=== PATIENT | male | born 1990 | race Caucasian/White ===

== ENCOUNTER 2017-09-02 10:31 | Emergency (ER) | payer SELFPAY ==
[2017-09-02 10:35] VITALS: O2SAT 95
[2017-09-02] MEDS ORDERED: IBUPROFEN 600 MG TAB PO ONE (10:45)
--- NOTE | 2017-09-02 10:47 | EDPHY ---
General Narrative: CHIEF COMPLAINT: Fall, left knee injury HISTORY OF PRESENT ILLNESS: Patient reports falling last night and striking his left knee on a brick planter. This was a mechanical fall as she tripped. He struck the knee while bent 90. Sudden onset of pain that was only mild last night. When he woke this morning it was more severe, he noted some bruising, and he was unable to bear weight on it. No head strike or injury elsewhere. No pain distal to the knee. No numbness or tingling. No footdrop. No other associated complaints or modifying factors. ESTABLISHED ORTHOPEDIST: None REVIEW OF SYSTEMS: Ten systems reviewed and are negative unless otherwise noted in the HPI PAST MEDICAL HISTORY: Muscle atrophy of the left lower extremity of uncertain etiology PAST SURGICAL HISTORY: None SOCIAL HISTORY: Occasional smoker. Occasional alcohol. Works at [employer] FAMILY HISTORY: Noncontributory EXAMINATION General Appearance: Alert, no distress Cardiovascular: Pulses normal throughout. Symmetric DP and PT pulses at 2+. Brisk cap refill Neurological: A&O, sensory symmetric, strength symmetric. No foot drop of the left lower extremity. Normal light sensation of the left foot. Normal proprioception of the left great toe Skin: Warm and dry, no rash. Mild ecchymosis suprapatellar and lateral on the left leg. No laceration or abrasion no erythema Extremities: Tenderness of the left knee anteriorly just to the left of the patella. Range of motion is intact and symmetric to the right. No instability of the knee. No crepitus. Negative Nancy. Negative drawer. Neurovascular intact distal to the area of pain Psychiatric: Mood and affect normal DIFFERENTIAL DIAGNOSES: Including but not limited to hematoma, sprain, strain, fracture, dislocation MDM: 10:45 a.m. Acute left knee injury after a fall late last night. He does have some bruising on the lateral aspect of the patella just superior to this. He has intact distally. X-ray has been ordered of the knee. No pain elsewhere. 11:29 a.m. X-ray is unremarkable for any acute findings. I will place the patient in immobilizer and crutches. I will refer him to Orthopedics for definitive care. He is comfortable this plan and discharged in stable condition. ED Precautions: Worsening pain. Erythema, edema, cyanosis, pallor, paresthesia or anesthesia. - Diagnostics Imaging Results: Imaging Impressions Knee X-Ray 09/02/17 10:35 Impression: Nothing acute identified. - History Smoking Status: Current some day smoker - Objective Vital Signs: Initial Vital Signs Temperature (C) 98.6 F 09/02/17 10:33 Heart Rate 110 H 09/02/17 10:33 Respiratory Rate 16 09/02/17 10:33 Blood Pressure 126/73 H 09/02/17 10:33 O2 Sat (%) 95 09/02/17 10:33 O2 Delivery Mode Room Air Allergies/Adverse Reactions: No Known Allergies Allergy (Unverified 09/02/17 10:33) Home Medications: Medication Instructions Recorded Acetaminophen/Codeine 300/30Mg 1 each PO Q6 PRN #7 tab 09/02/17 [Tylenol #3 (*)] Medications Given: Discontinued Medications Ibuprofen (Motrin) 600 mg PO EDNOW ONE Stop: 09/02/17 10:46 Last Admin: 09/02/17 10:56 Dose: 600 mg Departure - Departure Disposition: Home, Routine, Self-Care Clinical Impression: Contusion, knee Qualifiers: Encounter type: initial encounter Laterality: left Qualified Code(s): S80.02XA - Contusion of left knee, initial encounter Left knee sprain Qualifiers: Encounter type: initial encounter Involved ligament of knee: unspecified ligament Qualified Code(s): S83.92XA - Sprain of unspecified site of left knee, initial encounter Condition: Good Instructions: Knee Sprain (ED), Knee Pain (ED) Additional Instructions: 1. Weightbearing as tolerated 2. Ibuprofen 800 mg every 8 hours as needed 3. Pain medication as prescribed as needed 4. Orthopedic follow-up for definitive care 5. ED precautions as discussed Referrals: NONE *PRIMARY CARE P,. [Primary Care Provider] - As per Instructions Aston Rodriguez MD [Medical Doctor] - As per Instructions Prescriptions: Acetaminophen/Codeine 300/30Mg [Tylenol #3 (*)] 1 each PO Q6 PRN #7 tab PRN Reason: Pain, Mild
[2017-09-02 11:59] VITALS: BP 101/61; PULSE 97; RESP 18; TEMP 99
== END 2017-09-02 11:57 | disposition home or self-care (01) ==
DX: S83.92XA Sprain of unspecified site of left knee, initial encounter (principal); S80.02XA Contusion of left knee, initial encounter; F17.200 Nicotine dependence, unspecified, uncomplicated; W01.198A Fall on same level from slipping, tripping and stumbling with subsequent striking against other object, initial encounter
CPT/HCPCS: L1830